=== PATIENT | female | born 1955 | race African-American/Black ===

== ENCOUNTER 2017-12-30 20:31 | Emergency (ER) | payer BC ==
[~2017-12-30] VITALS: Ht 165.1 cm; Wt 64.0 kg
[2017-12-30 21:32] LABS: BASOPHILS % 0.6 % (0.0-2.0); EOSINOPHILS % 0.3 % (0.0-5.0); HEMATOCRIT. 35.9 % (36.0-48.0); HEMOGLOBIN. 12.5 g/dL (12.0-16.0); LYMPHOCYTES % 16.3 % (20.0-50.0); MEAN CORPUSCULAR HEMOGLOBIN 27.6 pg (28.0-32.0); MEAN CORPUSCULAR VOLUME 79.4 fL (81.0-99.0); MEAN PLATELET VOLUME 8.3 fl (7.4-10.4); MONOCYTES % 6.8 % (2.0-8.0); PLATELET 244 x1000/uL (130-400); RED BLOOD CELL COUNT 4.52 mill/uL (4.2-5.4); RED CELL DISTRIBUTION WIDTH 13.7 % (11.6-14.6)
[2017-12-30 21:38] LABS: CHLORIDE 107 mEq/L (98-107)
[2017-12-30 21:40] LABS: INR 1.1; PARTIAL THROMBOPLASTIN TIME 25.4 sec (23.4-31.0); PROTHROMBIN TIME 11.3 sec (9.4-11.6)
[2017-12-30] MEDS ORDERED: KETOROLAC 30MG/ML VIAL IM ONE (23:15)
[2017-12-30] MEDS ORDERED: MORPHINE SULFATE 10 MG/ML CPJ IM ONE (23:15)
[2017-12-30] MEDS ORDERED: TRANEXAMIC ACID 1,000 MG/10 ML IV ONE (23:45)
[2017-12-31 01:28] VITALS: BP 118/85
== END 2017-12-31 01:31 | disposition home or self-care (01) ==
LOC: ER 23:44
DX: K91.841 Postprocedural hemorrhage of a digestive system organ or structure following other procedure (principal); I10 Essential (primary) hypertension; Y83.8 Other surgical procedures as the cause of abnormal reaction of the patient, or of later complication, without mention of misadventure at the time of the procedure; Y92.018 Other place in single-family (private) house as the place of occurrence of the external cause
CPT/HCPCS: 36415; 80053; 85025; 85610; 85730; 86850; 86900; 86901; 96372; 96374; 99284; J1885; J2270; Z7610

== ENCOUNTER 2018-09-09 18:02 | Emergency (ER) | payer SELFPAY ==
[~2018-09-09] VITALS: Ht 162.6 cm; Wt 64.0 kg
[2018-09-09 18:13] VITALS: BP 151/68
== END 2018-09-10 01:55 | disposition left against medical advice (07) ==
LOC: ER 18:02
DX: Z53.21 Procedure and treatment not carried out due to patient leaving prior to being seen by health care provider (principal)
CPT/HCPCS: 93005

== ENCOUNTER 2018-12-27 07:09 | Inpatient (IN) | payer BC ==
[~2018-12-27] VITALS: Ht 162.6 cm; Wt 61.2 kg
[2018-12-27] MEDS ORDERED: SODIUM CHLORIDE 0.9% 1,000 ML IV ONE (07:27)
[2018-12-27 07:48] LABS: BASOPHILS % 0.9 % (0.0-2.0); EOSINOPHILS % 0.9 % (0.0-5.0); HEMATOCRIT. 41.8 % (36.0-48.0); HEMOGLOBIN. 14.6 g/dL (12.0-16.0); MEAN CORPUSCULAR HEMOGLOBIN 27.5 pg (28.0-32.0); MEAN CORPUSCULAR VOLUME 78.9 fL (81.0-99.0); MEAN PLATELET VOLUME 8.3 fl (7.4-10.4); MONOCYTES % 10.3 % (2.0-8.0); NEUTROPHILS % 54.9 % (40.0-76.0); PLATELET 256 x1000/uL (130-400); RED CELL DISTRIBUTION WIDTH 14.1 % (11.6-14.6)
[2018-12-27 07:49] LABS: CHLORIDE 101 mEq/L (98-107)
[2018-12-27 07:51] LABS: PARTIAL THROMBOPLASTIN TIME 28.5 sec (23.4-31.0); PROTHROMBIN TIME 10.6 sec (9.6-11.0)
[2018-12-27] MEDS ORDERED: ASPIRIN 325MG EC TABLET PO ONE (09:30)
[2018-12-27] MEDS ORDERED: KETOROLAC 15MG/ML VIAL IV PRN (11:45)
[2018-12-27] MEDS ORDERED: ENOXAPARIN 40MG/0.4ML SYR SUBCUT SCH ×2 (11:45→15:00)
[2018-12-27] MEDS ORDERED: CLONIDINE 0.1MG TABLET PO PRN (11:45)
[2018-12-27] MEDS ORDERED: IPRATROPIUM/ALBUTEROL 0.5-3(2.5)MG/3ML NEB INH PRN (11:45)
[2018-12-27] MEDS ORDERED: ONDANSETRON HCL 4MG/2ML INJ IV PRN (11:45)
[2018-12-27] MEDS ORDERED: ACETAMINOPHEN 325MG TABLET PO PRN (11:45)
[2018-12-27] MEDS ORDERED: DOCUSATE SODIUM 100MG CAPSULE PO PRN (11:45)
[2018-12-27] MEDS ORDERED: GUAIFENESIN 200MG/10ML SUGAR FREE UDC PO PRN (11:45)
[2018-12-27] MEDS ORDERED: MAGNESIUM/ALUMINUM HYDROXIDE/SIMETHICONE 30ML UDC PO PRN (11:45)
[2018-12-27] MEDS ORDERED: ZOLPIDEM TARTRATE 5MG TABLET PO PRN (11:45)
[2018-12-27 13:35] VITALS: BP 107/60
[2018-12-27 15:12] LABS: CANNABINOID URINE SCREEN NEGATIVE (NEGATIVE); PHENCYCLIDINE URINE SCREEN NEGATIVE (NEGATIVE)
[2018-12-27 15:13] LABS: *AMPHETAMINES SCREEN URINE NEGATIVE (NEGATIVE); *BARBITURATES SCREEN URINE NEGATIVE (NEGATIVE); *BENZODIAZEPINES SCREEN URINE NEGATIVE (NEGATIVE); *COCAINE SCREEN URINE NEGATIVE (NEGATIVE); METHADONE URINE SCREEN NEGATIVE (NEGATIVE); OPIATES URINE SCREEN NEGATIVE (NEGATIVE)
[2018-12-27 16:00] VITALS: BP 105/63
[2018-12-27] MEDS ORDERED: HYDR25TA PO (17:00)
[2018-12-27] MEDS ORDERED: ASPI-1158 PO (17:00)
[2018-12-27 20:00] VITALS: BP 109/53
[2018-12-27] MEDS: FAMOTIDINE 20MG TABLET PO SCH (21:26)
[2018-12-28] VITALS: BP 105/46
[2018-12-28 04:00] VITALS: BP 119/63
[2018-12-28 08:00] VITALS: BP 128/72
[2018-12-28] MEDS ORDERED: ASPIRIN 325MG EC TABLET PO SCH (09:00)
[2018-12-28] MEDS: FAMOTIDINE 20MG TABLET PO SCH (09:36)
[2018-12-28 10:48] VITALS: BP 128/72
== END 2018-12-28 11:30 | disposition home or self-care (01) | DRG 69 ==
LOC: ER 07:09 → 8WST 10:03 → EDBEDREQ 10:08 → ENRESERV 10:32
PROVIDERS: ADMIT Internal Medicine; ATTEND Internal Medicine
DX: G45.9 Transient cerebral ischemic attack, unspecified (principal); J45.909 Unspecified asthma, uncomplicated; I10 Essential (primary) hypertension; I25.2 Old myocardial infarction; Z87.891 Personal history of nicotine dependence
CPT/HCPCS: 36415; 70551; 71045; 80061; 80305; 83036; 83880; 84484; 93005; 93970; 96360; 99285; J1650; J7030

== ENCOUNTER 2019-06-17 09:27 | Emergency (ER) | payer BC ==
[~2019-06-17] VITALS: Ht 162.6 cm; Wt 70.0 kg
[~2019-06-17 09:27] MED LIST: ASPI-1158 PO; HYDR25TA PO
[2019-06-17 10:00] VITALS: BP 146/81
== END 2019-06-17 10:48 | disposition left against medical advice (07) ==
LOC: ER 09:47
DX: Z53.21 Procedure and treatment not carried out due to patient leaving prior to being seen by health care provider (principal)

== ENCOUNTER 2019-07-07 09:13 | Emergency (ER) | payer BC ==
[~2019-07-07] VITALS: Ht 162.6 cm; Wt 54.0 kg
[2019-07-07 10:44] LABS: BASOPHILS % 0.7 % (0.0-2.0); EOSINOPHILS % 0.2 % (0.0-5.0); HEMOGLOBIN. 13.4 g/dL (12.0-16.0); LYMPHOCYTES % 13.1 % (20.0-50.0); MEAN CORPUSCULAR HEMOGLOBIN 28.4 pg (28.0-32.0); MEAN CORPUSCULAR VOLUME 80.6 fL (81.0-99.0); MEAN PLATELET VOLUME 8.1 fl (7.4-10.4); MONOCYTES % 8.3 % (2.0-8.0); NEUTROPHILS % 77.7 % (40.0-76.0); PLATELET 292 x1000/uL (130-400); RED BLOOD CELL COUNT 4.72 mill/uL (4.2-5.4); RED CELL DISTRIBUTION WIDTH 13.7 % (11.6-14.6)
[2019-07-07] MEDS: LORAZEPAM 0.5MG TABLET PO ONE (10:44)
[2019-07-07 10:49] LABS: CHLORIDE 105 mEq/L (98-107)
[2019-07-07 11:35] VITALS: BP 138/81
== END 2019-07-07 12:13 | disposition home or self-care (01) ==
LOC: ER 09:13
DX: F41.1 Generalized anxiety disorder (principal); R00.2 Palpitations; I10 Essential (primary) hypertension; Z79.82 Long term (current) use of aspirin; Z79.899 Other long term (current) drug therapy
CPT/HCPCS: 36415; 71045; 83880; 84484; 93005; 99284

== ENCOUNTER 2020-10-01 13:16 | Emergency (ER) | payer BC ==
[~2020-10-01] VITALS: Ht 162.6 cm; Wt 67.0 kg
[~2020-10-01 13:16] MED LIST changes: -ASPI-1158 PO; +ASPI-1406 PO
[2020-10-01] MEDS ORDERED: IBUPROFEN 600MG TABLET PO ONE (14:00)
[2020-10-01 16:08] VITALS: BP 144/95
== END 2020-10-01 16:09 | disposition home or self-care (01) ==
LOC: ER 13:16
DX: M79.662 Pain in left lower leg (principal); F41.9 Anxiety disorder, unspecified; I10 Essential (primary) hypertension; Z79.82 Long term (current) use of aspirin; W22.03XA Walked into furniture, initial encounter; Y93.89 Activity, other specified; Y92.018 Other place in single-family (private) house as the place of occurrence of the external cause
CPT/HCPCS: 73590; 73610; 82962; 93970; 99284

== ENCOUNTER 2020-10-05 08:52 | Emergency (ER) | payer BC ==
[~2020-10-05] VITALS: Ht 172.7 cm; Wt 70.0 kg
[2020-10-05 10:48] LABS: BASOPHILS % 0.6 % (0.0-2.0); EOSINOPHILS % 0.4 % (0.0-5.0); HEMATOCRIT. 41.4 % (36.0-48.0); HEMOGLOBIN. 14.3 g/dL (12.0-16.0); LYMPHOCYTES % 18.1 % (20.0-50.0); MEAN CORPUSCULAR HEMOGLOBIN 27.6 pg (28.0-32.0); MEAN PLATELET VOLUME 8.4 fl (7.4-10.4); MONOCYTES % 8.6 % (2.0-8.0); NEUTROPHILS % 72.3 % (40.0-76.0); PLATELET 302 x1000/uL (130-400); RED BLOOD CELL COUNT 5.17 mill/uL (4.2-5.4); RED CELL DISTRIBUTION WIDTH 13.9 % (11.6-14.6)
[2020-10-05 10:53] LABS: CLARITY URINE CLEAR (CLEAR); COLOR URINE YELLOW (YELLOW); KETONES URINE NEGATIVE (NEGATIVE); LEUKOCYTE ESTERASE URINE NEGATIVE (NEGATIVE); NITRITE URINE NEGATIVE (NEGATIVE); OCCULT BLOOD URINE NEGATIVE (NEGATIVE); PH URINE 7.5 (4.5-8.0); PROTEIN URINE NEGATIVE (NEGATIVE); UROBILINOGEN URINE 0.2 E.U./dL (0.2-1.0)
[2020-10-05 10:58] LABS: CHLORIDE 105 mEq/L (98-107)
[2020-10-05 11:31] VITALS: BP 126/82
[2020-10-05 11:31] LABS: PROTHROMBIN TIME 10.5 sec (9.6-11.0)
== END 2020-10-05 11:33 | disposition home or self-care (01) ==
LOC: ER 08:52
DX: I10 Essential (primary) hypertension (principal); R22.42 Localized swelling, mass and lump, left lower limb; F41.9 Anxiety disorder, unspecified; Z79.82 Long term (current) use of aspirin
CPT/HCPCS: 36415; 80053; 81003; 85025; 93005; 99284